=== PATIENT | female | born 1985 | race Caucasian/White ===

== ENCOUNTER 2021-02-13 12:37 | Outpatient (REF) | payer OTHER, SELFPAY ==
--- NOTE | ~2021-02-13 | MR_ITS ---
MR BRAIN WITHOUT AND WITH CONTRAST CLINICAL INFORMATION: Encephalopathy. COMPARISON: None available. TECHNIQUE: Multiplanar, multisequence MRI of the brain was obtained before and after the intravenous administration of 7.5 mL Gadavist. FINDINGS: There are a few foci of T2 signal change within the supratentorial periventricular and subcortical white matter. Recommend correlating for clinical signs of demyelinating disease given this pattern which is overall nonspecific. There are no enhancing lesions. There is no hydrocephalus, extra-axial surface collection, or herniation. The major flow voids at the skull base are preserved. There is no acute infarct on diffusion-weighted imaging. There is no intracranial hemorrhage on the gradient recalled echo acquisition. The midline structures are normal. The cerebellar tonsils are normally positioned. The cerebellum and brainstem are normal. The craniocervical junction is normal. Osseous marrow signal intensity is homogenous. The visualized soft tissues are unremarkable. MR/MR head/brain wo/w con IMPRESSION: There are a few foci of T2 signal change within the supratentorial periventricular and subcortical white matter. Recommend correlating for clinical signs of demyelinating disease given this pattern which is overall nonspecific. There are no enhancing lesions.
== END 2021-02-13 12:38 | disposition home or self-care (01) ==
LOC: HO.MRI 12:37
PROVIDERS: Visit Provider Psychiatry & Neurology Neurology
DX: G93.40 Encephalopathy, unspecified (principal)
CPT/HCPCS: 70553; A9585

== ENCOUNTER 2021-03-14 09:38 | Day surgery (SDC) | payer OTHER, SELFPAY ==
--- NOTE | ~2021-03-14 | FL_ITS ---
PROCEDURE: XR LUMBAR PUNCTURE CLINICAL INFORMATION: Demyelinating changes in brain. COMPARISON: None TECHNIQUE: Following explaining fluoroscopy-guided lumbar puncture procedure, benefits and risk, a written consent was obtained. Patient was placed prone on fluoroscopy table and low back area was cleaned and draped in usual sterile manner. Previously marked site at L4-L5 disc level was infiltrated with 1% lidocaine. A 22-gauge spinal needle was advanced from the skin intrathecally at the L4-L5 disc level. After observing fluid return, patient was placed in left lateral decubitus view and stylet withdrawn. Fluid was collected in 4 test tubes. Postprocedure stylet was reintroduced and needle withdrawn and complete hemostasis achieved at puncture site. Patient tolerated procedure extremely well. Simple Band-Aid applied postprocedure. A lead apron was placed underneath the pelvis for patient protection. FINDINGS: Visualized fluoroscopy-guided images reveal normal vertebral heights, alignment and disc heights. No lytic or sclerotic process seen. Clear 8 mL of CSF was collected in 4 test tubes and sent to lab. FLUOROSCOPY TIME: 0.9 minutes. DOSE AREA PRODUCT: 10.295 uGy-m2 (microgray-meter squared). FL/FL guided lumbar puncture LP IMPRESSION: Successful fluoroscopy-guided L4-L5 lumbar puncture performed.
--- NOTE | 2021-03-14 09:52 | PC.NURSE ---
Spoke with Dr Anguiano regarding HCG urine test d/t patient age. Patient stated last period ended a couple days ago per Dr Anguiano no urine preg needed.
[2021-03-14 10:04] VITALS: BMI 29.2
[2021-03-14 10:18] LABS: MANUAL DIFF FLAG NO
[2021-03-14 10:21] LABS: Basophils Percent Auto 0.4 % (0-2); Eosinophils Absolute Auto 0.1 X10*3/uL (0.0-0.4); Eosinophils Percent Auto 1.7 % (0-4); Hematocrit 38.7 % (37.0-47.0); Hemoglobin 12.9 g/dl (12.0-16.0); Imm Gran Abs Auto 0.01 X10*3/uL (0.00-0.03); Imm Gran Pct Auto 0.2 % (0.0-0.4); Lymphocytes Absolute Auto 1.4 X10*3/uL (1.2-4.9); Lymphocytes Percent Auto 30.1 % (20-40); Mean Corpuscular HGB Conc 33.3 g/dl (31.0-35.0); Mean Corpuscular Hemoglobin 30.1 pg (27.0-33.0); Mean Corpuscular Volume 90.4 fL (80.0-98.0); Mean Platelet Volume 9.9 fL (9.4-12.3); Monocytes Absolute Auto 0.3 X10*3/uL (0.1-1.2); Monocytes Percent Auto 6.8 % (2-11); Neutrophils Absolute Auto 2.8 x10*3/uL (2.0-8.3); Neutrophils Percent Auto 60.8 % (45-73); Platelet Count 210 X10*3/uL (160-400); Red Blood Count 4.28 X10*6/uL (4.20-5.50); Red Cell Distribution Width 12.7 % (11.0-16.0); White Blood Count 4.6 X10*3/uL (4.8-10.8)
[2021-03-14 10:33] LABS: INTERNATIONAL NORM RATIO 1.1 (0.9-1.1); Prothrombin Time 12.9 SEC (9.9-13.0)
[2021-03-14 10:35] LABS: Partial Thromboplastin Time 34.9 SEC (24.1-38.0)
[2021-03-14 12:25] VITALS: BP 119/69; PULSE 68; RESP 16; TEMP 36.6; O2SAT 97
[2021-03-14 12:55] VITALS: BP 110/62; PULSE 68; RESP 16; O2SAT 97
[2021-03-14 13:13] LABS: CSF Appearance Clear, Colorless; CSF Tube # 1
[2021-03-14 13:24] LABS: Glucose CSF 56 mg/dL; Total Protein CSF 28.9 mg/dL (15-45)
[2021-03-14 13:25] VITALS: BP 104/66; PULSE 70; RESP 16; O2SAT 97
[2021-03-14 13:55] VITALS: BP 101/61; PULSE 69; RESP 16; O2SAT 97
[2021-03-14 14:09] LABS: Appearance CSF CLEAR; CSF Tube # 4; Color CSF COLORLESS; Red Blood Cell CSF 266 MM*3; White Blood Cell CSF 0 MM*3
[2021-03-14 14:25] VITALS: BP 111/69; PULSE 67; RESP 16; TEMP 36.4; O2SAT 98
[2021-03-15 08:10] LABS: Oligoclonal Serum Yes
[2021-03-18 08:06] LABS: Albumin, CSF 15.8 mg/dL (8.0-42.0); IgG 1220 mg/dL (600-1640); IgG Synthesis Rate -2.5 mg/24 h (-9.9-3.3); IgG, CSF 2.6 mg/dL (0.8-7.7)
== END 2021-03-14 14:28 | disposition home or self-care (01) ==
LOC: HO.SSS 09:38
PROVIDERS: Psychiatry & Neurology Neurology; PCP Family Medicine; Visit Provider Radiology Diagnostic Radiology
PROC: 009U3ZZ Drainage of Spinal Canal, Percutaneous Approach (ICD-10-PCS; CPT 62270; principal; 2021-03-14 11:00)
DX: G37.9 Demyelinating disease of central nervous system, unspecified (principal); G93.40 Encephalopathy, unspecified; D64.9 Anemia, unspecified; R42 Dizziness and giddiness; F32.9 Major depressive disorder, single episode, unspecified; F41.9 Anxiety disorder, unspecified; F45.9 Somatoform disorder, unspecified; Z79.899 Other long term (current) drug therapy; G43.909 Migraine, unspecified, not intractable, without status migrainosus; Z86.19 Personal history of other infectious and parasitic diseases
CPT/HCPCS: 36415; 62328; 82042; 82945; 83916; 84157; 85025; 85610; 85730; 87015; 87070; 87205; 89051

== ENCOUNTER 2021-03-28 14:39 | Outpatient (REF) | payer OTHER, SELFPAY ==
[2021-03-28 15:22] LABS: INTERNATIONAL NORM RATIO 1.1 (0.9-1.1)
[2021-03-28 15:43] LABS: Alanine Aminotransferase 12 U/L (0-31); Alkaline Phosphatase 34 U/L (39-117); Anion Gap 11 (12-20); Aspartate Amino Transferase 17 U/L (5-31); Bilirubin Direct 0.2 mg/dL (0.0-0.5); Bilirubin Total 0.5 mg/dL (0.0-1.0); Blood Urea Nitrogen 10 mg/dL (9-16); Calcium 9.5 mg/dL (8.4-10.2); Carbon Dioxide 26 mmol/L (22-29); Chloride 104 mmol/L (96-108); Estimated Glomerular Filt Rate > 60; Glucose Random 97 mg/dL (60-115); Potassium 4.4 mmol/L (3.3-5.1); Sodium 137 mmol/L (135-145); Total Protein 7.4 g/dL (6.5-8.0)
[2021-03-28 15:59] LABS: Erythrocyte Sedimentation Rate 7 MM/HR (0-20)
[2021-03-29 08:35] LABS: Syphilis Screen Nonreactive (Nonreactive)
[2021-03-29 08:47] LABS: Lyme Abs Screen <0.90 index
[2021-03-29 14:31] LABS: Anti Nuclear Antibody Screen NEGATIVE (NEGATIVE)
== END 2021-03-28 14:40 | disposition home or self-care (01) ==
LOC: HO.LAB 14:39
PROVIDERS: PCP Nurse Practitioner Pediatrics; Visit Provider Psychiatry & Neurology Neurology
DX: G37.9 Demyelinating disease of central nervous system, unspecified (principal)
CPT/HCPCS: 36415; 80048; 80076; 85610; 85652; 86038; 86039; 86617; 86618; 86780